=== PATIENT | male | born 2000 | race Caucasian/White ===

== ENCOUNTER 2019-08-28 16:59 | Emergency (ER) | payer OTHER ==
[~2019-08-28] VITALS: Ht 177.8 cm; Wt 59.0 kg
[2019-08-28 17:00] VITALS: BP 125/71; Ht 177.8 cm; Wt 59.0 kg
== END 2019-08-28 17:23 | disposition other institution (70) ==
LOC: ED 16:59
DX: Z02.89 Encounter for other administrative examinations (principal)